=== PATIENT | female | born 1995 | race Caucasian/White ===

== ENCOUNTER 2017-07-27 10:39 | Inpatient (IN) | payer MEDICAID, OTHER ==
[2017-07-27] VITALS (25 sets, daily range): BP systolic 94–122; BP diastolic 52–81; PULSE 79–108; RESP 17–21; TEMP 97.7–98.5; O2SAT 98
[~2017-07-27] VITALS: Ht 152.4 cm; Wt 73.0 kg
[~2017-07-27 10:39] MED LIST: CEPH500; LORTA5 PO; ZOFR4TAB3 PO
--- NOTE | 2017-07-27 11:00 | PD ---
HPI Chief Complaint Pain in pelvic area and back Date Seen: Jul 27, 2017 Time Seen: 11:00 Travel History International Travel<30 Days: No Contact w/Intl Traveler<30Days: No Known Affected Area: No History of Present Illness HPI Patient is a 21 year old at 39 weeks and 3 days who presents to OB triage complaining of lower abdominal and back pain, which she believes are contractions, as well as bloody show. She states that contractions started around 3 a.m. She experiences the contractions q10min. Patient has been experiencing bloody show/mucus plug since last night. Per patient picture, she experienced small amount of light pink, brownish discharge/fluid in panty liner. She reports positive movement. Of note, patient established care at 9 weeks with Winter Jarvis. Weeks Gestation: 39 Para: 0 : 2 History Past Medical History Medical History: Denies Significant Hx Obstetric History Obstetric History G1 - spontaneous vaginal delivery at 32 weeks, fetus noted to be small for gestational age/IUGR, stillbirth G2 - current , no complications Past Surgical History Surgical History: No Previous Surgery Family History Family History: Negative Social History Alcohol Use: No Tobacco Use: No Substance Abuse: No Allergies-Medications (Allergen,Severity, Reaction): Coded Allergies: No Known Allergies (Unverified Allergy, Unknown, 07/27/17) Home Meds Active Scripts Ondansetron (Zofran ODT) 4 Mg Tab, 4 MG PO Q4-6H, #12 TAB Prov:Marcy Monreal MD 02/02/15 Hydrocodone-Acetaminophen 5-325 mg (Hazard 5-325 mg) 5 mg/325 mg Tab, 1 TAB PO Q4H Y for PAIN, #10 TAB Prov:Marcy Monreal MD 02/02/15 Cephalexin Monohydrate (Keflex 500 mg Cap) 500 Mg Cap, 500 MG .XX Q6HR for 7 Days, CAP Prov:Marcy Monreal MD 02/02/15 Review of Systems Except as stated in HPI: all other systems reviewed are Neg Physical Exam Narrative GENERAL: Well-nourished, well-developed patient. SKIN: Warm and dry. HEAD: Normocephalic and atraumatic. EYES: No scleral icterus. No injection or drainage. ENT: No nasal drainage noted. Mucous membranes pink. Airway patent. NECK: Supple, trachea midline. No JVD. CARDIOVASCULAR: Regular rate and rhythm without murmurs, gallops, or rubs. RESPIRATORY: Breath sounds equal bilaterally. No accessory muscle use. ABDOMEN/GI: Abdomen soft, non-tender, bowel sounds present, no rebound, no guarding. Gravid to 39 weeks size GENITOURINARY: External Genitalia: intact and normal in appearance Dilatation: 5 cm Effacement: 70% Station: -2 Presentation: Vertex Membranes: Intact Uterine Contractions: q10min FHT's: Category: 1 Baseline: 140 Reactive: Reactive Variability: Moderate Decels: None EXTREMITIES: No cyanosis or edema. BACK: Nontender without obvious deformity. No CVA tenderness. NEUROLOGICAL: Awake and alert. Motor and sensory grossly within normal limits. Five out of 5 muscle strength in all muscle groups. Normal speech. Data Data Vital Signs Reviewed: Yes Group B Strep: Negative MDM Plan Patient is a 21 year old at 39 weeks and 3 days who presents to OB triage complaining of lower abdominal and back pain, which she believes are contractions, as well as bloody show. She established care with Winter Jarvis at 9 weeks. * IUP - Category: 1, Baseline: 140, Reactive, Variability: Moderate, Decels: None * Admit for labor. Diagnosis Diagnosis: Primary Impression: Normal labor Elsie Vieyra MD R1 Jul 27, 2017 11:00
[2017-07-27] MEDS ORDERED: LACTATED RINGER'S 1000 ML INJ 1,000 ML IV PRN (11:42)
[2017-07-27] MEDS ORDERED: LACTATED RINGER'S 1000 ML INJ 1,000 ML IV SCH (11:42)
[2017-07-27] MEDS ORDERED: LIDOCAINE HCL 1% 50 ML VIAL INFIL PRN (11:45)
[2017-07-27] MEDS ORDERED: CITRIC ACID-SODIUM CITRATE LIQ 30 ML UDC PO SCH (11:45)
[2017-07-27] MEDS ORDERED: ONDANSETRON HCL 4 MG/2 ML VIAL IV PUSH PRN (11:45)
[2017-07-27] MEDS ORDERED: OXYTOCIN 30 UNITS-500ML PREMIX 500 ML IV ONE (11:45)
[2017-07-27] MEDS ORDERED: SODIUM CHLORID 0.9% 500 ML INJ 500 ML IV PRN (11:45)
[2017-07-27] MEDS ORDERED: LIDOCAINE HCL 1% 50 ML VIAL I-DERMAL PRN (11:45)
[2017-07-27] MEDS ORDERED: MINERAL OIL 10 ML VIAL TOPICAL PRN (11:45)
[2017-07-27] MEDS ORDERED: SODIUM CHLOR 0.9% 1000 ML INJ 1,000 ML IV PRN (12:02)
[2017-07-27 13:39] LABS: AUTOMATED NEUTROPHIL # 7.4 TH/MM3 (1.8-7.7); BASOPHIL % 0.3 % (0.0-2.0); EOSINOPHIL # 0.1 TH/MM3 (0-0.4); EOSINOPHIL % 0.6 % (0.0-4.0); HEMATOCRIT 34.4 % (35.0-46.0); HEMOGLOBIN 11.6 GM/DL (11.6-15.3); LYMPH % 19.6 % (9.0-44.0); MEAN CORPUSCULAR HEMOGLOBIN 28.5 PG (27.0-34.0); MEAN CORPUSCULAR HGB CONC 33.6 % (32.0-36.0); MEAN PLATELET VOLUME 10.6 FL (7.0-11.0); MONO % 6.2 % (0.0-8.0); MONOCYTE # 0.6 TH/MM3 (0-0.9); NEUT % 73.3 % (16.0-70.0); PLATELET COUNT 182 TH/MM3 (150-450); RED BLOOD COUNT 4.05 MIL/MM3 (4.00-5.30); RED CELL DISTRIBUTION WIDTH 14.9 % (11.6-17.2); WHITE BLOOD COUNT 10.1 TH/MM3 (4.0-11.0)
[2017-07-27 13:47] LABS: BILIRUBIN, URINE NEG (NEG); BLOOD, URINE SMALL (NEG); GLUCOSE,URINE TRACE mg/dL (NEG); KETONE, URINE NEG (NEG); NITRITE,URINE NEG (NEG); SQUAMOUS EPITHELIAL CELL URINE 2 /hpf (0-5); URINE COLOR LIGHT-YELLOW (YELLW/STRAW); URINE LEUKOCYTE ESTERASE TRACE (NEG)
--- NOTE | 2017-07-27 14:05 | HHI.PR ---
Subjective Remarks OBHG S: Patient resting comfortably O: VSS AF FHT: 130s to 140s with moderate long-term variability, good accelerations, no decelerations noted Treynor: Every 5-6 minutes SVE: 5/80/-1 Assessment/plan: 1. IUP at 39.3 2. History of FDIU at 32 weeks 3. Labor: Patient admitted for labor at term, now AROM with clear fluid. Discussed risks of and risks/indications of delivery including but not limited to pain, infection, bleeding, injury to other organs like the bladder/bowel/nerves/vessels, injury to the baby, hysterectomy, need for blood transfusion, repeat operation, wound infection or breakdown, and other possible complications we discussed that we will plan for a vaginal delivery would perform delivery if medically indicated. Discussed the possiblity of augmentation with oxytocin if indicated 4. well-being: Reassuring well-being with category 1 heart rate tracing and reactive NST 5. GBS negative Objective Vital Signs Date Time Temp Pulse Resp B/P (MAP) Pulse Ox O2 Delivery O2 Flow Rate FiO2 07/27/17 12:51 98.5 07/27/17 12:46 18 07/27/17 12:45 79 114/69 (84) 07/27/17 11:00 96 119/64 (82) Result Diagram: 07/27/17 1209 Norma Barnes MD Jul 27, 2017 14:05
[2017-07-27] MEDS ORDERED: OXYTOCIN 30 UNITS-500ML PREMIX 500 ML IV PRN (15:45)
[2017-07-27] MEDS ORDERED: PREN1TAB45 PO (15:45)
[2017-07-27] MEDS ORDERED: DIPHTH/TETANUS/ACEL PERTUSSIS (BOOSTER) 0.5 ML VIAL/PFS IM ONE (16:00)
[2017-07-27] MEDS ORDERED: MEASLES, MUMPS, RUBELLA VACCINE 0.5 ML VIAL SQ ONE (16:00)
--- NOTE | 2017-07-27 16:53 | PD.LABORPN ---
Subjective Subjective Contractions intensifying. IUPC placed. Pitocin started. Objective Vital Signs Vital Signs Date Time Temp Pulse Resp B/P (MAP) Pulse Ox O2 Delivery O2 Flow Rate FiO2 07/27/17 15:01 98.2 07/27/17 12:51 98.5 07/27/17 12:46 18 07/27/17 12:45 79 114/69 (84) 07/27/17 11:00 96 119/64 (82) Objective Pelvic Exam: Dilatation: 7 cm Effacement: 80% Station: -1 Presentation: Vertex Membranes: AROM Uterine Contractions: q4min FHT's: Category: 1 Baseline: 150 Reactive: Reactive Variability: Moderate Decels: None Weeks Gestation: 39 Pt started active labor?: Yes Medical induction of labor?: No Artificial rupture of membrane: Yes Artificial ROM date: Jul 27, 2017 Artifical ROM time: 14:00 Assessment/Plan Assessment and Plan 1. IUP at 39 weeks and 3 days. 2. History of FDIU at 32 weeks. 3. Labor: Patient admitted for labor at term, AROM with clear fluid. Augmentation with Pitocin 2-2-30. 4. well-being: Reassuring well-being with category 1 heart rate tracing and reactive NST. 5. GBS negative. Elsie Vieyra MD R1 Jul 27, 2017 16:53
[2017-07-27] MEDS ORDERED: LIDOCAINE HCL 1% 50 ML VIAL ONE (18:09)
--- NOTE | 2017-07-27 18:33 | HHI.PR ---
Subjective Remarks OBHG The patient progressed to complete/complete/+2 with spontaneous maternal expulsive efforts. She proceeded to deliver the head atraumatically and spontaneously followed by spontaneous and atraumatic delivery of the anterior shoulder and remainder of the with reassuring heart tones throughout. The was vigorous at delivery and placed on the maternal abdomen. The cord was clamped after a delay of 1 minute. Cord blood was obtained for the nursery and the placenta delivered spontaneously. The placenta appeared to be intact. Apgars 8/9. A partial second-degree vaginal laceration was noted which is repaired with 2-0 Vicryl after instillation of 5 cc 1% lidocaine. A rectal examination was negative and the rectal sphincter was intact. Mother and are both doing well. EBL 250 cc. Objective Vital Signs Date Time Temp Pulse Resp B/P (MAP) Pulse Ox O2 Delivery O2 Flow Rate FiO2 07/27/17 18:19 98.4 86 116/52 (73) 07/27/17 17:21 97.7 07/27/17 17:19 92 122/65 (84) 07/27/17 17:14 21 07/27/17 17:06 108 122/69 (86) 07/27/17 16:30 20 07/27/17 15:30 20 07/27/17 15:01 98.2 07/27/17 14:30 19 07/27/17 13:30 18 07/27/17 12:51 98.5 07/27/17 12:46 18 07/27/17 12:45 79 114/69 (84) 07/27/17 11:00 96 119/64 (82) Result Diagram: 07/27/17 1209 Norma Barnes MD Jul 27, 2017 18:33
[2017-07-27] MEDS ORDERED: LIDOCAINE HCL 1% PF 30 ML VIAL SQ STA (18:35)
--- NOTE | 2017-07-27 18:35 | PD.OB.DELI ---
Weeks gestation: 39 Pt started active labor?: Yes Medical induction of labor?: No Artificial rupture of membrane: Yes Artificial ROM date: Jul 27, 2017 Artifical ROM time: 14:00 Anesthesia: Lidocaine local to perineum Episiotomy: None Vaginal Delivery: Normal Presentation: Occiput anterior Nuchal Cord: None Delayed cord clamping (45 sec): Yes Infant: Female Delivery date: Jul 27, 2017 Delivery time: 18:03 One Minute : 8 Five Minute : 9 Weight: 7#9oz Placenta: Spontaneous delivery Laceration: 2 deg (Partial second degree laceration) Repair: Chromic running (2-0) Estimated blood loss: 250 Norma Barnes MD Jul 27, 2017 18:35
[2017-07-27] MEDS ORDERED: DOCUSATE SODIUM 50 MG/SENNA 8.6 MG TAB PO PRN (19:00)
[2017-07-27] MEDS ORDERED: SODIUM CHLORIDE 0.9% FLUSH 10 ML FLUSH IV FLUSH PRN (19:00)
[2017-07-27] MEDS ORDERED: BENZOCAINE 20% TOPICAL SPRAY 60 ML CAN TOPICAL PRN (19:00)
[2017-07-27] MEDS ORDERED: ONDANSETRON ODT 4 MG TAB PO PRN (19:00)
[2017-07-27] MEDS ORDERED: WITCH HAZEL 50%/GLYCERIN 12.5% 40 PAD JAR TOPICAL PRN (19:00)
[2017-07-27] MEDS ORDERED: OXYTOCIN 30 UNITS-500ML PREMIX 500 ML IV SCH (19:00)
[2017-07-27] MEDS ORDERED: oxyCODONE/ACETAMINOPHEN 5 MG/325 MG TAB PO PRN ×2 (19:00)
[2017-07-27] MEDS ORDERED: ACETAMINOPHEN 325 MG TAB PO PRN (19:00)
[2017-07-27] MEDS ORDERED: ALUMINUM/MAGNESIUM/SIMETH 30 ML CUP PO PRN (19:00)
[2017-07-27] MEDS: IBUPROFEN 800 MG TAB PO PRN (19:33)
[2017-07-27] MEDS ORDERED: ZOLPIDEM TARTRATE 5 MG TAB PO PRN (21:00)
[2017-07-27] MEDS ORDERED: SODIUM CHLORIDE 0.9% FLUSH 10 ML FLUSH IV FLUSH SCH (21:00)
[2017-07-28] MEDS: IBUPROFEN 800 MG TAB PO PRN ×2 (04:01→15:01)
[2017-07-28 09:00] VITALS: BP 106/73; PULSE 90; RESP 16; TEMP 98.1
[2017-07-28] MEDS ORDERED: DOCUSATE SODIUM 100 MG CAP PO SCH (09:00)
[2017-07-28] MEDS ORDERED: INFLUENZA VIRUS VACCINE (QUADRIVALENT) 0.5 ML SYR IM ONE (10:00)
--- NOTE | 2017-07-28 11:32 | HHI.OB ---
Subjective Post Day: 1 Remarks Ms. Chatman is a 21 yo who is PPD 1 from 07/27 at 1803. Patient afebrile with stable vital signs overnight. Patient reports some vaginal bleeding and abdominal cramping at this time but that it is not excessive. Patient has been ambulating to bathroom. Patient passing gas but has not yet had a bowel movement. Patient reports some pain with urination. Patient does not report other concerns at this time. Objective Vitals/I&O Vital Signs Date Time Temp Pulse Resp B/P (MAP) Pulse Ox O2 Delivery O2 Flow Rate FiO2 07/28/17 09:00 98.1 90 16 106/73 (84) 07/27/17 20:56 94/54 (67) 07/27/17 20:56 98.4 97 20 98 07/27/17 20:01 91 112/54 (73) 07/27/17 19:45 106 107/59 (75) 07/27/17 19:31 108 119/53 (75) 07/27/17 19:15 84 112/62 (79) 07/27/17 19:00 94 107/81 (90) 07/27/17 18:57 17 07/27/17 18:46 88 107/59 (75) 07/27/17 18:45 19 07/27/17 18:32 84 103/52 (69) 07/27/17 18:30 19 07/27/17 18:19 98.4 86 116/52 (73) 07/27/17 17:21 97.7 07/27/17 17:19 92 122/65 (84) 07/27/17 17:14 21 07/27/17 17:06 108 122/69 (86) 07/27/17 16:30 20 07/27/17 15:30 20 07/27/17 15:01 98.2 07/27/17 14:30 19 07/27/17 13:30 18 07/27/17 12:51 98.5 07/27/17 12:46 18 07/27/17 12:45 79 114/69 (84) Objective Remarks GENERAL: Well-nourished, well-developed patient. CARDIOVASCULAR: Regular rate and rhythm without murmurs. Normal perfusion RESPIRATORY: CTAB; normal rate ABDOMEN/GI: Abdomen soft, non-tender. Fundus: Firm, non-tender at umbilicus. GENITOURINARY: Light/ moderate bleeding. EXTREMITIES: No cyanosis or edema, non-tender, without signs of DVT. Medications and IVs Current Medications Medications (Trade) Dose Ordered Sig/Dominguez Route Start Time Stop Time Status Last Admin (NS Flush) 2 ml BID IV FLUSH 07/27/17 21:00 (NS Flush) 2 ml UNSCH PRN IV FLUSH 07/27/17 19:00 (Tylenol) 650 mg Q4H PRN PO 07/27/17 19:00 (Motrin) 800 mg Q8H PRN PO 07/27/17 19:00 07/28/17 04:01 (Percocet 5-325 Mg) 1 tab Q4H PRN PO 07/27/17 19:00 (Percocet 5-325 Mg) 2 tab Q4H PRN PO 07/27/17 19:00 (Americaine 20% Top Spr) 1 spray Q4H PRN TOPICAL 07/27/17 19:00 (Tucks Pads) 1 applic QID PRN TOPICAL 07/27/17 19:00 (Lynsey-Colace) 2 tab Q12H PRN PO 07/27/17 19:00 (Ambien) 5 mg HS PRN PO 07/27/17 21:00 (Mag-Al Plus Susp Liq) 15 ml Q8H PRN PO 07/27/17 19:00 (Zofran Odt) 4 mg Q6H PRN PO 07/27/17 19:00 (Colace) 100 mg TID PO 07/28/17 09:00 Assessment/Plan Problem List: (1) care following vaginal delivery ICD Codes: Z39.2 - Encounter for routine follow-up Status: Acute Assessment and Plan Ms. Chatman is a 21 yo who is PPD 1 from 07/27 at 1803 -Continue routine post- care -Continue to monitor maternal VS -Continue to monitor vaginal bleeding -Continue PRN Motrin and Percocet for pain control -Continue to encourage -Continue to encourage ambulation Jhony Edwards MD, R3 Jul 28, 2017 11:32
[2017-07-28 20:00] VITALS: BP 111/69; PULSE 91; RESP 18; TEMP 98; O2SAT 98
[2017-07-29] MEDS: IBUPROFEN 800 MG TAB PO PRN ×2 (04:23→13:13)
[2017-07-29 08:00] VITALS: BP 101/78; PULSE 72; RESP 18; TEMP 98.1
--- NOTE | 2017-07-29 08:32 | HHI.OB ---
Subjective Post Day: 2 Remarks Patient is a 21-year-old delivered at 39 weeks and 3 days. Patient is day 2 after spontaneous vaginal delivery. Patient's pain is well- controlled. Patient reports minimal bleeding. Patient reports eating and drinking without any nausea or vomiting. Patient has passed gas and had a bowel movement. Patient denies chest pain and shortness of breath. Patient has been ambulating; she denies lower extremity pain. Patient reports desire to discuss contraception with [employer] at 6 week follow-up appointment. Patient has decided to breast-feed. Objective Vitals/I&O Vital Signs Date Time Temp Pulse Resp B/P (MAP) Pulse Ox O2 Delivery O2 Flow Rate FiO2 07/28/17 20:00 98.0 98 07/28/17 20:00 91 18 111/69 (83) 07/28/17 09:00 98.1 90 16 106/73 (84) Objective Remarks GENERAL: Well-nourished, well-developed patient. CARDIOVASCULAR: Regular rate and rhythm without murmurs, gallops, or rubs. RESPIRATORY: Breath sounds equal bilaterally. No accessory muscle use. ABDOMEN/GI: Abdomen soft, minimally tender. Fundus: Firm, minimally tender at umbilicus. GENITOURINARY: Light to moderate bleeding. EXTREMITIES: No cyanosis or edema, non-tender, without signs of DVT. Medications and IVs Current Medications Medications (Trade) Dose Ordered Sig/Dominguez Route Start Time Stop Time Status Last Admin (NS Flush) 2 ml BID IV FLUSH 07/27/17 21:00 (NS Flush) 2 ml UNSCH PRN IV FLUSH 07/27/17 19:00 (Tylenol) 650 mg Q4H PRN PO 07/27/17 19:00 (Motrin) 800 mg Q8H PRN PO 07/27/17 19:00 07/29/17 04:23 (Percocet 5-325 Mg) 1 tab Q4H PRN PO 07/27/17 19:00 (Percocet 5-325 Mg) 2 tab Q4H PRN PO 07/27/17 19:00 (Americaine 20% Top Spr) 1 spray Q4H PRN TOPICAL 07/27/17 19:00 (Tucks Pads) 1 applic QID PRN TOPICAL 07/27/17 19:00 (Lynsey-Colace) 2 tab Q12H PRN PO 07/27/17 19:00 (Ambien) 5 mg HS PRN PO 07/27/17 21:00 (Mag-Al Plus Susp Liq) 15 ml Q8H PRN PO 07/27/17 19:00 (Zofran Odt) 4 mg Q6H PRN PO 07/27/17 19:00 (Colace) 100 mg TID PO 07/28/17 09:00 Assessment/Plan Problem List: (1) care following vaginal delivery ICD Codes: Z39.2 - Encounter for routine follow-up Status: Acute Assessment and Plan Patient is a 21-year-old delivered at 39 weeks and 3 days. Patient is day 2 after spontaneous vaginal delivery. * Continue routine care. * Motrin and Percocet when necessary for pain. * Encourage OOB. * Pelvic rest for 6 weeks will need follow-up appointment at that time. * Patient reports desire to discuss contraception with [employer] at 6 week follow- up appointment. * Anticipate discharge today. Discussed with OB hospitalist. Elsie Vieyra MD R1 Jul 29, 2017 08:32
[2017-07-29] MEDS ORDERED: FERR325T18 PO (08:34)
[2017-07-29] MEDS ORDERED: IBUP1TAB7 PO (08:34)
--- NOTE | 2017-07-29 08:35 | HHI.DCPOC ---
Discharge Care Plan Diagnosis: (1) Normal labor (2) care following vaginal delivery Your Health Problems Are: Vaginal delivery Report Symptoms to Your Doctor -Temperature above 100.5 degrees -Redness, of incision or excessive or foul smelling drainage -Unusual pain or calf pain -Increased vaginal bleeding -Painful or difficulty urinating -Feelings of extreme sadness or anxiety after 2 weeks Goals to Promote Your Health * To prevent worsening of your condition and complications * To maintain your health at the optimal level Directions to Meet Your Goals Take your medications as prescribed Follow your dietary instruction Follow activity as directed Ensure plenty of rest for recovery Drink fluids for hydration Keep your appointments as scheduled Take your immunizations and boosters as scheduled If your symptoms worsen call your PCP, if no PCP go to Urgent Care Center or Emergency Room Smoking is Dangerous to Your Health. Avoid second hand smoke Call the 24-hour crisis hotline for domestic abuse at Elsie Vieyra MD R1 Jul 29, 2017 08:35
== END 2017-07-29 14:25 | disposition home or self-care (01) | DRG 775 ==
LOC: HOBED 10:39 → H2EB 11:50 → H1EA 20:21
PROVIDERS: ADMIT Obstetrics & Gynecology; ATTEND Obstetrics & Gynecology
PROC: 10E0XZZ Delivery of Products of Conception, External Approach (ICD-10-PCS; principal; 2017-07-27)
PROC: 0KQM0ZZ Repair Perineum Muscle, Open Approach (ICD-10-PCS; 2017-07-27)
PROC: 10907ZC Drainage of Amniotic Fluid, Therapeutic from Products of Conception, Via Natural or Artificial Opening (ICD-10-PCS; 2017-07-27)
PROC: 10H07YZ Insertion of Other Device into Products of Conception, Via Natural or Artificial Opening (ICD-10-PCS; 2017-07-27)
DX: O70.1 Second degree perineal laceration during delivery (principal); Z37.0 Single live birth; Z3A.39 39 weeks gestation of pregnancy; Z23 Encounter for immunization
CPT/HCPCS: 59025; 80307; 81001; 85025; 86900; 86901; 90686; J2590; J7120; Q2038